=== PATIENT | male | born 1985 ===

== ENCOUNTER 2022-03-09 21:33 | Emergency (ER) | payer SELFPAY ==
[2022-03-09] MEDS ORDERED: MIDAZOLAM 2 MG/2 ML INJ IV PRN (21:40)
[2022-03-09] MEDS ORDERED: MIDAZOLAM/NS Drip 100mg/100ml 100 MG/100 ML BAG IV SCH (22:00)
[2022-03-09 22:06] LABS: Hematocrit 47.7 % (30.3-42.9); Hemoglobin 14.6 gm/dl (10.1-14.3); Red Blood Count 4.87 M/mm3 (3.65-5.03)
[2022-03-09 22:07] LABS: Mean Platelet Volume 10.5 fl (6-12)
[2022-03-09 22:19] LABS: Albumin 4.6 g/dL (3.9-5); Calcium 10.6 mg/dL (8.4-10.2)
--- NOTE | 2022-03-09 23:02 | Emergency Department Report ---
ED General Adult HPI - General Stated complaint: CARDIAC ARREST PUI?: No Time Seen by Provider: 03/09/22 21:36 Source: EMS - History of Present Illness Initial comments: RN brought to my attention that EMS just brought patient into room 5 with an active seizure. On my arrival patient is actively seizing and immediately verbal order was given 2 mg Ativan. Once 2 mg Ativan was given patient's seizure stopped however I have noticed that patient is not breathing as there is no chest rise. Pulse check with no pulse and CPR was started immediately. I also give verbal order for Narcan 2mg to be given immediately. Per EMS, they got a call for patient with seizure at home and from home to here, it took about 10 minutes to get here. Per EMS, they do not know any medical history of the patient. Please see code sheet from RN. At one point, we did have ROSC but lost pulse again. Time of was called at 21:45PM - Related Data Allergies Allergy/AdvReac Type Severity Reaction Status Date / Time Unable to Assess Allergy Unverified 04/15/17 11:33 ED Review of Systems ROS: Stated complaint: CARDIAC ARREST Other details as noted in HPI Comment: Unobtainable due to pts medical conditions ED Physical Exam - General Limitations: Altered Mental Status General appearance: postictal - Head Head exam: Present: atraumatic, normocephalic, normal inspection - Eye Eye exam: Present: normal appearance, other (Pupil dilated bilatearlly ) - ENT ENT exam: Present: normal exam, mucous membranes moist - Neck Neck exam: Present: normal inspection - Respiratory Respiratory exam: Present: normal lung sounds bilaterally - Extremities Exam Extremities exam: Present: normal inspection - Neurological Exam Neurological exam: Present: altered - Skin Skin exam: Present: cyanosis ED Medical Decision Making - Lab Data Result diagrams: 03/09/22 Unknown 03/09/22 Unknown Critical care attestation.: If time is entered above; I have spent that time in minutes in the direct care of this critically ill patient, excluding procedure time. ED Disposition Clinical Impression: Seizure, Cardiopulmonary arrest with successful resuscitation, Cardiopulmonary arrest Disposition: 20 Is pt being admited?: No Does the pt Need Aspirin: No Condition: Stable Time of Disposition: 23:10
== END 2022-03-09 23:00 ==
LOC: EDBD → EDSEX → ED 21:33
DX: I46.9 Cardiac arrest, cause unspecified (principal); R56.9 Unspecified convulsions
CPT/HCPCS: 36415; 80053; 82550; 83735; 84484; 85027; 99285